=== PATIENT | male | born 1980 | race Caucasian/White ===

== ENCOUNTER → 2024-03-13 16:37 | Outpatient (CLI) | payer OTHER, SELFPAY ==
[2024-03-13 18:09] LABS: Influenza A - CEPHEID Flu A NEGATIVE (NEGATIVE); Influenza B - CEPHEID Flu B NEGATIVE (NEGATIVE); Respiratory Syncytial Virus Negative (Negative)
[2024-03-13 18:11] LABS: COVID-19 CEPHEID 4-PLEX PCR Negative (Negative)
== END ==
PROVIDERS: Visit Provider Physician Assistant
DX: R05.1 Acute cough (principal)
CPT/HCPCS: 0241U

== ENCOUNTER → 2024-07-02 11:01 | Outpatient (CLI) | payer OTHER, SELFPAY ==
--- NOTE | 2024-07-02 11:03 | DI.RAD.S_ITS ---
PROCEDURE: XR ANKLE LT MIN 3V INDICATIONS: r/o avulsion/fracture TECHNIQUE: 3 views of the ankle were acquired. COMPARISON: None. FINDINGS: Bones: No acute fractures or dislocations. Small corticated ossifications adjacent to the medial malleolar tip are likely the sequela of a remote prior injury. Ankle mortise is normally aligned. No suspicious bony lesions. Soft tissues: No tibiotalar joint effusion. Achilles tendon appears normal. IMPRESSION: No acute osseous abnormality. If there is continued clinical concern or persistent symptoms, repeat radiographs or cross-sectional imaging (e.g. CT, MRI) may be helpful for further evaluation. Approved by: Earle Sweet M.D. on 07/02/2024 at 10:29
== END ==
PROVIDERS: PCP Nurse Practitioner; Referring Provider Chiropractor; Visit Provider Chiropractor
DX: S93.402A Sprain of unspecified ligament of left ankle, initial encounter (principal); G37.9 Demyelinating disease of central nervous system, unspecified; X58.XXXA Exposure to other specified factors, initial encounter
CPT/HCPCS: 73610